=== PATIENT | male | born 1950 | race Caucasian/White ===

== ENCOUNTER 2016-03-12 19:11 | Emergency (ER) | payer MEDICARE, MEDICAID ==
[~2016-03-12] VITALS: Ht 165.1 cm; Wt 99.5 kg
[~2016-03-12 19:11] MED LIST: ALLO300T2 PO; ATEN-51 PO; CIPR500T4 PO; CLOP75TA27 PO; DOCU-144 PO; ESOM40CA PO; EZET1TAB35 PO; GLIM2TAB PO; HYDR-762 PO; LOSA100T47 PO; SITA100T8 PO; TAMS-14 PO; ZOLP5TAB PO
[2016-03-12 19:15] VITALS: Ht 165.1 cm; Wt 99.5 kg
[2016-03-12] MEDS ORDERED: KETOROLAC 30 MG INJ IM STA (20:30)
[2016-03-12] MEDS ORDERED: DIAZEPAM 5 MG TAB PO ONE (20:30)
--- NOTE | 2016-03-12 21:12 | RADRPT ---
PROCEDURE: Chest x-ray CLINICAL INDICATION: Trauma with cough TECHNIQUE: Chest single view COMPARISON: None FINDINGS: The heart is normal in size. The pulmonary vessels are normal in caliber. There is mild atheroscle rotic aortic calcification. A dense 6 x 6 cm mass-like area of consolidation is now in the right pe rihilar location. This is concerning for neoplastic process; however given the history of recent tr auma, this could represent an area of lung contusion. Chest CT is recommended for further evaluatio n. Lungs otherwise clear. Costophrenic angles are sharp. No pneumothorax is seen. The bony thora x is unremarkable. IMPRESSION: 1. 6 x 6 cm mass-like area of consolidation right perihilar location. This is concerning for quinten plastic process; however given the recent history of trauma, this could represent an area of lung co ntusion although this is felt to be less likely. Recommend obtaining a chest CT for further evaluat ion. 2. Lungs otherwise clear.. 3. No pneumothorax seen. 4. Mild atherosclerotic aortic calcification RPTAT: HH .Cricket Sloan MD, Date Time Electronically viewed and signed by .Cricket Sloan MD, on 03/12/2016 21:11 .W/
--- NOTE | 2016-03-12 21:13 | RADRPT ---
PROCEDURE: Shoulder x-ray CLINICAL INDICATION: Pain TECHNIQUE: Right shoulder 2 views COMPARISON: None FINDINGS: 2 views of the right shoulder demonstrate no displaced fracture. The humeral head articulates anato mically with the glenoid fossa. There is mild degenerative change glenohumeral and acromioclavicular joint.. Bones are normally mineralized. Soft tissues are unremarkable. IMPRESSION: No acute fracture dislocation Mild degenerative change glenohumeral and acromioclavicular joint Incidental right perihilar lung mass RPTAT: HH .Cricket Sloan MD, Date Time Electronically viewed and signed by .Cricket Sloan MD, on 03/12/2016 21:12 .W/
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
--- NOTE | 2016-03-12 21:59 | RADRPT ---
PROCEDURE: CT Chest without contrast. CLINICAL INDICATION: Contusion versus chest mass. TECHNIQUE: CT scan of the chest without contrast was performed on a multidetector high-resolution CT scanner. Coronal and sagittal reformatted images were obtained from the axial source images. The total exam CTDI equals 15.19 mGy and the total exam DLP equals 578.49 mGy-cm. COMPARISON: Plain film chest dated today, earlier in the day. FINDINGS: Large mass in the anterior right upper lung, measuring 59 x 57 x 40 mm. This represent neoplasm unt il proven otherwise. The mass abuts the anterior upper thoracic pleura and the right anterior medias tinum. Additionally, bilateral scattered nodules measure up to 12 mm, representing bilateral metast atic deposits until proven otherwise. Otherwise, no acute process in the lungs. Right precarinal and subcarinal adenopathy, with right precarinal lymph node measuring about 28 x 23 mm. The vascular structures of the mediastinum are normal in course and caliber. Aortic vascular c alcifications and coronary artery calcifications are present. The heart size is normal without evid ence for pericardial thickening or effusion. The axillary regions, subpectoral regions, and supraclavicular regions are all unremarkable. The deluna rrounding chest wall is unremarkable. Imaging obtained through the upper abdomen reveals fatty infi ltration of the liver. The surrounding osseous structures demonstrate mild degenerative changes. No osteolytic or osteobla stic lesion is detected. IMPRESSION: 1. 6 cm mass in the anterior right upper lobe represents neoplasm until proven otherwise. 2. Bilateral scattered lung nodules represent metastatic lung cancer deposits until proven otherwis e, measuring up to 12 mm. 3. Precarinal and subcarinal adenopathy compatible with metastatic neoplasm until proven otherwise. 4. Fatty infiltration of the liver. RPTAT: [facility] Physician Odalis Date Time Electronically viewed and signed by Physician Odalis on 03/12/2016 21:58 RS/
[2016-03-12] MEDS ORDERED: DIAZ-90 PO (22:29)
[2016-03-12] MEDS ORDERED: NAPR-260 PO (22:29)
[2016-03-12 22:52] VITALS: BP 185/81; PULSE 65; RESP 18; TEMP 98.5
== END 2016-03-12 22:54 | disposition home or self-care (01) ==
LOC: FTE 19:11
DX: S13.4XXA Sprain of ligaments of cervical spine, initial encounter (principal); R91.8 Other nonspecific abnormal finding of lung field; I10 Essential (primary) hypertension; E11.9 Type 2 diabetes mellitus without complications; V49.40XA Driver injured in collision with unspecified motor vehicles in traffic accident, initial encounter; Z79.84 Long term (current) use of oral hypoglycemic drugs; Z95.5 Presence of coronary angioplasty implant and graft
CPT/HCPCS: 71010; 71250; 73030; J1885; 96372

== ENCOUNTER 2016-08-06 10:47 | Emergency (ER) | payer MEDICARE, MEDICAID ==
[~2016-08-06] VITALS: Ht 175.3 cm; Wt 100.0 kg
[~2016-08-06 10:47] MED LIST changes: +DIAZ-90 PO; +NAPR-260 PO
[2016-08-06 10:58] VITALS: Ht 175.3 cm; Wt 100.0 kg
[2016-08-06] MEDS ORDERED: ONDANSETRON 4 MG INJ IV STA (11:22)
[2016-08-06] MEDS ORDERED: MECLIZINE 12.5 MG TAB PO ONE (11:30)
[2016-08-06 11:58] LABS: ADD SCAN DIFF NO
[2016-08-06 11:59] LABS: BASOPHILS % 0.3 % (0.0-2.0); EOSINOPHILS # 0.1 10^3/ul (0.0-0.5); EOSINOPHILS % 0.7 % (0.0-7.0); HEMOGLOBIN 11.4 g/dl (14.0-18.0); LYMPHOCYTES # 1.3 10^3/ul (0.8-2.9); LYMPHOCYTES % 14.7 % (15.0-51.0); MEAN CORPUSCULAR HEMOGLOBIN 31.9 pg (29.0-33.0); MEAN CORPUSCULAR HGB CONC 33.5 g/dl (32.0-37.0); MEAN CORPUSCULAR VOLUME 95.2 fl (82.0-101.0); MEAN PLATELET VOLUME 9.2 fl (7.4-10.4); MONOCYTE # 0.5 10^3/ul (0.3-0.9); MONOCYTES % 5.4 % (0.0-11.0); NEUTROPHILS % 78.1 % (39.0-77.0); PLATELET COUNT 187 10^3/UL (140-415); RED BLOOD COUNT 3.57 10^6/ul (4.70-6.10); RED CELL DISTRIBUTION WIDTH 16.7 % (11.5-14.5); WHITE BLOOD COUNT 8.9 10^3/ul (4.8-10.8)
[2016-08-06 12:28] LABS: ALANINE AMINOTRANSFERASE 23 IU/L (13-69); ALBUMIN 4.7 g/dl (3.3-4.9); ALBUMIN/GLOBULIN RATIO 1.67; ALKALINE PHOSPHATASE 74 IU/L (42-121); ANION GAP 12 (8-16); ASPARTATE AMINO TRANSFERASE 19 IU/L (15-46); BILIRUBIN,INDIRECT 0.9 mg/dl (0-1.1); BILIRUBIN,TOTAL 0.9 mg/dl (0.2-1.3); BLOOD UREA NITROGEN 15 mg/dl (7-20); CALCIUM 10.2 mg/dl (8.4-10.2); CARBON DIOXIDE 30 mmol/L (21-31); CHLORIDE 104 mmol/L (97-110); CREATININE 0.99 mg/dl (0.61-1.24); GLUCOSE 158 mg/dl (70-220); POTASSIUM 4.2 mmol/L (3.5-5.1); SODIUM 142 mmol/L (135-144); TOTAL PROTEIN 7.5 g/dl (6.1-8.1)
[2016-08-06 12:31] LABS: INR 0.91; PROTIME 12.3 Sec (12.2-14.2)
[2016-08-06 12:32] LABS: PARTIAL THROMBOPLASTIN TIME 23.7 Sec (25.0-35.0)
[2016-08-06 12:37] LABS: B-TYPE NATRIURETIC PEPTIDE 30 PG/ML (0-125)
[2016-08-06 12:41] LABS: TROPONIN-I < 0.012 ng/ml (0.00-0.12)
[2016-08-06] MEDS ORDERED: PRAS10TA6 PO (12:49)
[2016-08-06] MEDS ORDERED: AMLO-147 PO (12:49)
[2016-08-06] MEDS ORDERED: ROSU40TA35 PO (12:50)
[2016-08-06] MEDS ORDERED: PROC10TA10 PO (12:51)
[2016-08-06] MEDS ORDERED: DEC1 PO (12:51)
[2016-08-06] MEDS ORDERED: DIPH1TAB PO (12:51)
--- NOTE | 2016-08-06 13:02 | RADRPT ---
PROCEDURE: XR Chest. CLINICAL INDICATION: 65-year-old male with vomiting and chest pain. TECHNIQUE: Single frontal view of the chest was obtained. COMPARISON: Chest x-ray 03/12/2016 08:[address] scan of the chest 03/12/2016 09:33 p.m. FINDINGS: The soft tissues are normal. There are degenerative osteophytes in the thoracic spine. The heart i s normal in size. The cardiomediastinal silhouette and hilar structures are normal. The pulmonary v asculature is normal. There are vascular calcifications in the aortic arch. There is a enlarging ma ss in the lower periphery of the right upper lobe measuring approximately 7.4 cm transverse by 5.9 c m in height. The mass measured about 6 cm in transverse diameter and 4.2 cm in height on the prior CT scan dated 03/12/2016. There are additional poorly visualized pulmonary nodules at the level of the left hilum and in the right lower lobe. No pleural effusion is noted. IMPRESSION: 1. Multiple pulmonary metastases are identified in conjunction with an enlarging mass in the lower p eriphery of the right upper lobe currently measuring 7.4 cm transverse by 5.9 cm in height. 2. There are infiltrates in the right perihilar area and right lower lobe suspicious for pneumonia. The film is underpenetrated and infiltrate in the left lower lung field is not excluded. 3. Atherosclerosis of the aortic arch. R-4 spondylosis of the thoracic spine. RPTAT:AAJJ Physician James Date Time Electronically viewed and signed by Physician James on 08/06/2016 13:01 MARILYN/
--- NOTE | 2016-08-06 13:04 | ERD ---
ER Documentation Chief Complaint Date/Time DATE: 08/06/16 TIME: 13:00 Chief Complaint Complains of HPI This is a 65-year-old male who presents to the emergency room for evaluation of dizziness. The patient describes his dizziness as a room spinning sensation worse with any rapid change in position. The patient denies any chest pain or palpitations or fevers associated with this. He denies any syncope or head injury and was brought in by his daughter for evaluation. According to the patient's daughter this patient does have a history of cancer and is on chemotherapy. She denies any nausea or vomiting associated with this. She states that his dizziness is improved when he lays flat and worse with rapid change in position. ROS All systems reviewed and are negative except as per history of present illness. Medications Home Meds Reported Medications Diphenoxylate HCl/Atropine (Lomotil 2.5-0.025 mg Tablet) 1 Each Tablet, 1 TAB PO Q6H Y for DIARRHEA, TAB 08/06/16 Prochlorperazine* (Prochlorperazine*) 10 Mg Tablet, 10 MG PO Q6H Y for NAUSEA, TAB 08/06/16 Dexamethasone* (Decadron*) 1 Mg Tab, 1 MG PO BID, TAB 08/06/16 Rosuvastatin Calcium* (Crestor*) 40 Mg Tablet, 40 MG PO QHS, #30 TAB 08/06/16 Prasugrel Hydrochloride* (Effient*) 10 Mg Tablet, 10 MG PO DAILY, TAB 08/06/16 Amlodipine Besylate* (Amlodipine Besylate*) 10 Mg Tablet, 10 MG PO DAILY, #30 TAB 08/06/16 Zolpidem Tartrate* (Ambien*) 5 Mg Tablet, 5 MG PO HS MAY REPEAT X 1 Y for INSOMNIA, TAB 12/10/14 Atenolol* (Atenolol*) 25 Mg Tablet, 25 MG PO DAILY, TAB 12/10/14 Allopurinol* (Allopurinol*) 300 Mg Tablet, 300 MG PO DAILY, TAB 12/10/14 Glimepiride* (Glimepiride*) 2 Mg Tablet, 2 MG PO BID, TAB 12/10/14 Sitagliptin* (Januvia*) 100 Mg Tablet, 100 MG PO DAILY, TAB 12/10/14 Losartan Potassium* (Cozaar*) 100 Mg Tablet, 100 MG PO DAILY, TAB 12/10/14 Discontinued Reported Medications Esomeprazole Mag Trihydrate (Nexium) 40 Mg Capsule.dr, 40 MG PO DAILY, CAP 12/10/14 Clopidogrel Bisulfate (Clopidogrel) 75 Mg Tablet, 75 MG PO DAILY, TAB 12/10/14 Ezetimibe-Simvastatin (Vytorin) 10-20 Mg Tablet, 1 TAB PO HS, TAB 12/10/14 Discontinued Scripts Diazepam* (Valium*) 5 Mg Tablet, 5 MG PO Q8 for MUSCLE SPASMS, #14 TAB Prov:JOSE LASSITER PA-C 03/12/16 Naproxen* (Naprosyn*) 500 Mg Tablet, 500 MG PO BID Y for PAIN AND/OR INFLAMMATION, #30 TAB Prov:JOSE LASSITER PA-C 03/12/16 Ciprofloxacin Hcl* (Ciprofloxacin Hcl*) 500 Mg Tablet, 500 MG PO BID for 7 Days , TAB Prov:DEVIN PADILLA 12/10/14 Tamsulosin Hcl* (Flomax*) 0.4 Mg Cap.er.24h, 0.4 MG PO BID, #10 CAP Prov:RAVI PADILLAA 12/10/14 Docusate Sodium* (Colace*) 100 Mg Capsule, 100 MG PO BID, #20 CAP Prov:RAVI PADILLAA 12/10/14 Hydrocodone Bit-Acetaminophen* ([place]*) 10-325 Mg Tablet, 1 TAB PO Q6 Y for PAIN , #20 TAB Prov:BALDOMERO PADILLATHIA 12/10/14 Allergies Allergies: Coded Allergies: No Known Drug Allergies (Verified Allergy, Unknown, 08/06/16) PMhx/Soc History of Surgery: Yes Anesthesia Reaction: No Hx Neurological Disorder: No Hx Respiratory Disorders: No Hx Cardiac Disorders: Yes (HTN, CAD-4 stents.) Hx Psychiatric Problems: No Hx Miscellaneous Medical Probl: Yes (DM; KIDNEY STONES, BPH , RT LUNG CA , ON CHEMO ) Hx Alcohol Use: No (DENIES) Hx Substance Use: No (DENIES) Hx Tobacco Use: No (DENIES) Smoking Status: Former smoker Physical Exam Vitals Vital Signs Date Time Temp Pulse Resp B/P Pulse Ox O2 Delivery O2 Flow Rate FiO2 08/06/16 10:58 98.3 75 20 168/74 90 Physical Exam INITIAL VITAL SIGNS: Reviewed by me GENERAL: The patient is well developed and appropriate for usual state of health in no apparent distress HEENT: Pupils equal, round, and reactive to light. EOMI. There is no scleral icterus. NECK: C-spine is soft and supple, there is no meningismus. There is no cervical lymphadenopathy. LUNGS: Clear to auscultation bilaterally. There are no rales, wheezes or rhonchi. HEART: Regular rate and rhythm, no murmurs, clicks, rubs or gallops. ABDOMEN: Soft, non-tender, non-distended. There are bowel sounds in all four quadrants. No rebound or guarding. EXTREMITIES: There is no peripheral cyanosis or edema. No focal swelling or erythema. NEUROLOGICAL: Nonsustainable horizontal nystagmus to the right, patient moves all four extremities with 5/5 strength. Cranial nerves II - XII are intact. Normal gait. Alert and oriented SKIN: There is no apparent rash or petechiae. HEME/LYMPHATIC: There is no evidence of excessive bruising or lymphedema. PSYCHIATRIC: The patient does not appear anxious or depressed. Result Diagram: 08/06/16 1140 08/06/16 1140 Results 24 hrs Laboratory Tests Test 08/06/16 11:40 White Blood Count 8.910^3/ul Red Blood Count 3.5710^6/ul Hemoglobin 11.4g/dl Hematocrit 34.0% Mean Corpuscular Volume 95.2fl Mean Corpuscular Hemoglobin 31.9pg Mean Corpuscular Hemoglobin Concent 33.5g/dl Red Cell Distribution Width 16.7% Platelet Count 42181^3/UL Mean Platelet Volume 9.2fl Neutrophils % 78.1% Lymphocytes % 14.7% Monocytes % 5.4% Eosinophils % 0.7% Basophils % 0.3% Nucleated Red Blood Cells % 0.0/100WBC Neutrophils # 7.010^3/ul Lymphocytes # 1.310^3/ul Monocytes # 0.510^3/ul Eosinophils # 0.110^3/ul Basophils # 0.010^3/ul Nucleated Red Blood Cells # 0.010^3/ul Prothrombin Time 12.3Sec Prothrombin Time Ratio 1.0 INR International Normalized Ratio 0.91 Activated Partial Thromboplast Time 23.7Sec Sodium Level 142mmol/L Potassium Level 4.2mmol/L Chloride Level 104mmol/L Carbon Dioxide Level 30mmol/L Anion Gap 12 Blood Urea Nitrogen 15mg/dl Creatinine 0.99mg/dl Glucose Level 158mg/dl Calcium Level 10.2mg/dl Total Bilirubin 0.9mg/dl Direct Bilirubin 0.00mg/dl Indirect Bilirubin 0.9mg/dl Aspartate Amino Transf (AST/SGOT) 19IU/L Alanine Aminotransferase (ALT/SGPT) 23IU/L Alkaline Phosphatase 74IU/L Troponin I < 0.012ng/ml B-Type Natriuretic Peptide 30PG/ML Total Protein 7.5g/dl Albumin 4.7g/dl Globulin 2.80g/dl Albumin/Globulin Ratio 1.67 Current Medications Medications (Trade) Dose Ordered Sig/Leonel Route PRN Reason Start Time Stop Time Status Last Admin Dose Admin Ondansetron HCl (Zofran Inj) 4 mg ONCE STAT IV 08/06/16 11:22 08/06/16 11:24 DC 08/06/16 11:40 Meclizine HCl (Antivert) 25 mg ONCE ONCE PO 08/06/16 11:30 08/06/16 11:31 DC 08/06/16 11:41 Procedures/MDM EKG: Rate/Rhythm: [Normal Sinus Rhythm] QRS, ST, T-waves: [No changes consistent w/ acute ischemia] Impression: [No evidence of ischemia or arrhythmia] Chest X-ray 1V Interpreted by me: Soft Tissue: No acute abnormalities Bones: No acute abnormalities Mediastinum/Cardiac Silhouette/Lungs: Right lobe mass This 65-year-old male presents to the emergency room for evaluation of dizziness which she described as a lightheaded sensation. When I evaluated this patient he did have a nonsustainable nystagmus. The patient was given meclizine. Lab work was obtained including EKG which is within normal limits. Chest x-ray does demonstrate right lobe mass which is consistent with his history of cancer. I advised the patient is likely suffering from vertigo. The patient states his dizziness has improved since he has taken meclizine here in the emergency room. The patient will be discharged at this time with a prescription for meclizine and ENT referral. I advised the patient's family that this patient were to develop any worsening symptoms including headache or slurred speech and need to return immediately to the emergency room. The patient verbalized understanding, as did his family. The patient has no focal neurological deficits at this time will be discharged with instructions that if he were to develop any neurological symptoms he is to return to the emergency room for a CAT scan to rule out any tumors in the brain. Departure Diagnosis: Primary Impression: BPPV (benign paroxysmal positional vertigo) Additional Impressions: Normocytic anemia Nausea and vomiting Condition: Stable JESSICA GRIGGS DO Aug 06, 2016 13:04
[2016-08-06] MEDS ORDERED: MECL12.574 PO (13:10)
[2016-08-06] MEDS ORDERED: AZIT250T94 PO (13:10)
[2016-08-06 13:26] VITALS: BP 166/88; PULSE 77; RESP 20; TEMP 98.2
[2016-08-06] MEDS ORDERED: AZITHROMYCIN 250 MG TAB PO ONE (13:30)
== END 2016-08-06 13:28 | disposition home or self-care (01) ==
LOC: E/R 10:47
DX: H81.10 Benign paroxysmal vertigo, unspecified ear (principal); D64.9 Anemia, unspecified; R11.2 Nausea with vomiting, unspecified; J18.9 Pneumonia, unspecified organism; I10 Essential (primary) hypertension; E11.9 Type 2 diabetes mellitus without complications; C34.90 Malignant neoplasm of unspecified part of unspecified bronchus or lung; Z98.61 Coronary angioplasty status; Z79.84 Long term (current) use of oral hypoglycemic drugs; Z79.01 Long term (current) use of anticoagulants; Z87.891 Personal history of nicotine dependence
CPT/HCPCS: 71010; 80053; 83880; 84484; 85025; 85610; 85730; 93005; J2405; 36415; 96374